=== PATIENT | female | born 1985 | race Caucasian/White ===

== ENCOUNTER 2020-01-10 00:34 | Emergency (ER) | payer SELFPAY ==
[~2020-01-10] VITALS: Ht 170.2 cm; Wt 90.7 kg
[2020-01-10 00:34] VITALS: BP 157/78
--- NOTE | 2020-01-10 00:51 | NUR ---
Dr. Strong examining patient.
--- NOTE | 2020-01-10 01:13 | NUR ---
Ultrasound at bedside.
[2020-01-10 01:55] VITALS: BP 157/78
--- NOTE | 2020-01-10 01:55 | NUR ---
PATIENT BIB [employer] [employer]. PATIENT EXAMINED BY DR. CABALLERO. PATIENT MEDICALLY CLEARED AND RELEASED IN CUSTODY IN STABLE CONDITION. ORIGINAL PRE-BOOK FORM GIVEN TO [employer] [employer].
== END 2020-01-10 01:55 ==
LOC: MED 00:34
DX: O26.891 Other specified pregnancy related conditions, first trimester (principal); R11.0 Nausea; R03.0 Elevated blood-pressure reading, without diagnosis of hypertension; Z02.89 Encounter for other administrative examinations
CPT/HCPCS: 76801; 99284; Q0092